=== PATIENT | male | born 1965 | race Two or more races ===

== ENCOUNTER → 2017-04-01 | Outpatient (CLI) | payer OTHER ==
[2017-04-01 18:48] LABS: HEMOGLOBIN 16.7 g/dL (14.1-18.0); LYMPH # 1.4 K/mm3 (0.7-4.5)
[2017-04-01 19:38] LABS: BUN 8 mg/dL (7-18); GFR (ESTIMATED) 78 ML/MIN (>60)
[2017-04-03 08:46] LABS: PSA, Free 0.25 ng/mL; Prostate Specific Ag 1.3 ng/mL (0.0-4.0)
== END ==
LOC: LAB 17:35
PROVIDERS: Emergency Medicine
DX: I10 Essential (primary) hypertension (principal)